=== PATIENT | female | born 1960 | race Asian ===

== ENCOUNTER 2019-06-19 12:52 | Emergency (ER) | payer OTHER ==
[~2019-06-19] VITALS: Ht 152.4 cm; Wt 68.0 kg
[2019-06-19 12:52] VITALS: BP_SYST 161
--- NOTE | 2019-06-19 12:52 | NUR ---
BROUGHT BACK TO BED #8 AND TRIAGED. REPORT GIVEN TO RUDI
--- NOTE | 2019-06-19 12:55 | NUR ---
Patient presented to ER C/O allergic reaction. Patient A&Ox4, ambulatory to ER, denies pain, denioes N/V/D, facial swelling noted, bilat ear redness & swelling. Patient states she feels throat itchiness, facial swelling and "chest heaviness" after eating [place] today.
[2019-06-19] MEDS ORDERED: DIPHENHYDRAMINE INJ 50 MG/ML VIAL IM ONE (13:00)
[2019-06-19] MEDS ORDERED: EPINEPHrine 1 MG/ML AMP SUBCUT ONE (13:00)
[2019-06-19] MEDS ORDERED: methylPREDNISolone SOD SUCC/PF 62.5 MG/ML VIAL IM ONE (13:00)
--- NOTE | 2019-06-19 13:00 | NUR ---
ER Dr. Colon at bedside examining patient.
--- NOTE | 2019-06-19 13:55 | NUR ---
Note bayron in EDM - 06/19/19 at 1948 by [email or web address] Patient presented to ER C/O allergic reaction. Patient A&Ox4, ambulatory to ER, denies pain, denioes N/V/D, facial swelling noted, bilat ear redness & swelling. Patient states she feels throat itchiness, facial swelling and "chest heaviness" after eating [place] today.
[2019-06-19] MEDS ORDERED: ACETAMINOPHEN 500 MG TABLET ONE (14:28)
[2019-06-19] MEDS ORDERED: IOHEXOL 350 mgI/mL, 150 ML INFUS..BTL IV ONE (14:56)
[2019-06-19 15:44] VITALS: BP_SYST 192
--- NOTE | 2019-06-19 15:44 | NUR ---
Patient given written and verbal discharge instructions and verbalizes understanding. ER MD discussed with patient the results and treatment provided. Patient in stable condition. ID arm band removed. Rx of Alegra & Epipen given. Patient educated on pain management and to follow up with PMD. Pain Scale 0/10 . Opportunity for questions provided and answered.
== END 2019-06-19 15:44 | disposition home or self-care (01) ==
LOC: SED 12:52
DX: T78.1XXA Other adverse food reactions, not elsewhere classified, initial encounter (principal); Z91.040 Latex allergy status; Z90.49 Acquired absence of other specified parts of digestive tract; X58.XXXA Exposure to other specified factors, initial encounter
CPT/HCPCS: 93005; 96372; 99291; J0171; J1200; J2930; 99283; Q9967